=== PATIENT | female | born 2000 | race Caucasian/White ===

== ENCOUNTER → 2019-03-12 | Outpatient (CLI) | payer OTHER, BC ==
[2015-05-26 09:40] VITALS: BMI 35.4
[~2019-03-12] MED LIST: ACE3 PO; ANTIBIOTIC; ARIP300S IM; ASCO-599 PO; CEPH500C24 PO; ERG400 PO; FLUO-202 PO; FLUO40CA76 PO; GUAI-545 PO; IBU200 PO; MULT-859 PO; MULT-892 PO; SERT25TA87 PO; TOBROD OP; [UNRECOGNIZED DRUG - CODE] PO; [UNRECOGNIZED DRUG - CODE] PO
--- NOTE | 2019-03-12 12:06 | EKG ---
FACILITY: [facility] - [place], [place] PATIENT NAME: DARLIN DONALD : [id number] MR: [id number] V: [id number] EXAM DATE: ORDERING PHYSICIAN: TOSHIA RAMAN TECHNOLOGIST: MAXINE Test Reason : HYPERTHYROID Blood Pressure : / mmHG Vent. Rate : 078 BPM Atrial Rate : 078 BPM P-R Int : 220 ms QRS Dur : 096 ms QT Int : 390 ms P-R-T Axes : 066 013 045 degrees QTc Int : 444 ms Sinus rhythm with 1st degree AV block Otherwise normal ECG No previous ECGs available Confirmed by TOSHIA RAMAN ([id number]) on 03/13/2019 2:34:52 PM Referred By: CIRO Confirmed By:TOSHIA RAMAN
== END ==
LOC: LAB 11:17
PROVIDERS: ATTEND Internal Medicine
DX: E05.90 Thyrotoxicosis, unspecified without thyrotoxic crisis or storm (principal); I44.0 Atrioventricular block, first degree
CPT/HCPCS: 36415; 82040; 82247; 82310; 82374; 82435; 82565; 82947; 84075; 84132; 84155; 84295; 84439; 84443; 84450; 84460; 84481; 84520

== ENCOUNTER 2019-04-01 02:28 | Outpatient (RCR) | payer BC ==
[2015-05-26 09:40] VITALS: BMI 35.4
--- NOTE | 2019-04-02 09:24 | RADIOLOGY IMAGING REPORT ---
[place] [facility] [place]: Heather Yarbrough : 2000 MR: [id number] V: [id number] EXAM DATE: ORDERING PHYSICIAN: TOSHIA RAMAN TECHNOLOG[place]: [place] [facility] [place] Heather Y[place] : 2000 Visit/Account:[id number] Date of Sevice: 04/01/2019 Examination: Nuclear medicine thyroid uptake and scan Comparison: 07/14/2015 iodine uptake and scan. History: hyperthyroid Procedure: Following the uneventful administration of 386 ?Ci I-123 enteric on 04/01/2019 the patient returns for standard pinhole imaging of the thyroid and calculation of 24-hour uptake. Findings: Homogeneous iodine distribution throughout the thyroid with no hot or cold nodule. 6 hour iodine uptake is 19%. 24 hour iodine uptake is 33%. 24 hour normal range is 10-35 %. IMPRESSION: 1. No hot or cold nodule. 2. 24 hour iodine uptake is within normal limits. Report Dictated By: Kimo Bishop MD at 04/02/2019 9:13 AM Report E-Signed By: Kimo Bishop MD at 04/02/2019 9:19 AM WSN:[id number]
== END 2019-04-01 18:00 | disposition home or self-care (01) ==
LOC: NUC 02:28 → EDSTATUS 14:23 → NUC 18:00
PROVIDERS: ATTEND Internal Medicine
DX: E05.90 Thyrotoxicosis, unspecified without thyrotoxic crisis or storm (principal); E05.00 Thyrotoxicosis with diffuse goiter without thyrotoxic crisis or storm
CPT/HCPCS: 78014; A9516